=== PATIENT | female | born 1970 | race American Indian/Alaskan Native ===

== ENCOUNTER 2019-05-12 08:27 | Emergency (ER) | payer SELFPAY ==
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
[2019-05-12] MEDS ORDERED: CYCLOBENZAPRINE 10 MG TAB PO ONE (10:49)
[2019-05-12] MEDS ORDERED: KETOROLAC 30 MG/1 ML INJ IM ONE (10:49)
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
[2019-05-12 12:08] VITALS: BP 160/90
== END 2019-05-12 11:56 | disposition home or self-care (01) ==
LOC: ED 08:27
DX: S39.012A Strain of muscle, fascia and tendon of lower back, initial encounter (principal); Z79.899 Other long term (current) drug therapy; V49.49XA Driver injured in collision with other motor vehicles in traffic accident, initial encounter; Y93.89 Activity, other specified; Y92.410 Unspecified street and highway as the place of occurrence of the external cause; Y99.8 Other external cause status
CPT/HCPCS: 72100; 96372; 99283; J1885